=== PATIENT | male | born 1950 | race African-American/Black ===

== ENCOUNTER 2022-07-22 16:24 | Inpatient (IN) | payer OTHER, MEDICARE ==
[2022-07-22 16:26] VITALS: BMI 30.8
[2022-07-22 20:38] LABS: Hemoglobin A1c 5.3 % (4.0-6.0)
[2022-07-22] MEDS: Guaifenesin DM 100-10/5 ML UDCUP PO PRN (20:45)
[2022-07-23 05:54] LABS: #Eosinphils 0.2 thou/uL (0.0-0.7); #Lymphocytes 1.9 thou/uL (1.20-3.40); #Monocytes 0.5 thou/uL (0.11-0.59); #Neutrophils 1.6 thou/uL (1.40-6.50); %Basophils 0.5 % (0.0-1.0); %Eosinophils 5.6 % (0.0-10.0); %Lymphocytes 44.1 % (21.0-51.0); %Monocytes 11.6 % (0.0-10.0); %Neutrophils 38.3 % (42.0-75.0); Hemoglobin 12.3 g/dL (14.0-18.0); Mean Corpuscular HGB CONC 32.4 g/dL (32.0-36.0); Mean Corpuscular Hemoglobin 30.7 pg (27.0-31.0); Mean Corpuscular Volume 94.6 fl (78.0-98.0); Platelet Count 326 10x3/uL (130-400); White Blood Cell (WBC) Count 4.2 10x3/uL (4.8-10.8)
[2022-07-23 06:25] LABS: ALT (SGPT) 13 U/L (8-55); AST (SGOT) 21 U/L (5-34); Albumin 3.5 g/dL (3.4-4.8); Alkaline Phosphatase 58 U/L (40-110); Anion Gap 10 mmol/L (10-20); BUN (Urea Nitrogen) 14 mg/dL (8.4-25.7); Bilirubin, Total 0.9 mg/dL (0.2-1.2); Calc. Creatinine Clearance 86 mL/min (70-130); Calcium 8.6 mg/dL (7.8-10.44); Carbon Dioxide 24 mmol/L (23-31); Chloride 108 mmol/L (98-107); Estimated GFR 81; Glucose 75 mg/dL (83-110); Potassium 3.9 mmol/L (3.5-5.1); Protein, Total 6.5 g/dL (5.8-8.1); Sodium 138 mmol/L (136-145)
[2022-07-23 06:50] LABS: Cardiac Risk 4.3 (Less than 4.5)
[2022-07-23] MEDS: Aspirin 81 mg Enteric Coated Tablet PO SCH (08:47)
[2022-07-23] MEDS: Enoxaparin Sodium 40 MG/0.4 ML SYRINGE SC SCH (08:47)
[2022-07-24] MEDS: Aspirin 81 mg Enteric Coated Tablet PO SCH (08:03)
[2022-07-24] MEDS: Enoxaparin Sodium 40 MG/0.4 ML SYRINGE SC SCH (08:03)
[2022-07-24] MEDS ORDERED: Iopamidol-370 76% 500 ML 1 ML ONE (11:09)
[2022-07-24] MEDS: Guaifenesin DM 100-10/5 ML UDCUP PO PRN (18:09)
[2022-07-24] MEDS ORDERED: Atorvastatin Calcium 40 MG TAB PO SCH (21:00)
[2022-07-25] MEDS: Aspirin 81 mg Enteric Coated Tablet PO SCH (08:39)
[2022-07-25] MEDS: Enoxaparin Sodium 40 MG/0.4 ML SYRINGE SC SCH (08:39)
[2022-07-25 16:31] VITALS: BP 136/67; TEMP 97.7
== END 2022-07-25 17:47 | disposition home or self-care (01) | DRG 66 ==
LOC: 2SW 16:25 → OBSVTOIN 07-24 15:11
PROVIDERS: ADMIT Student in an Organized Health Care Education/Training Program; ATTEND Student in an Organized Health Care Education/Training Program
DX: I63.89 Other cerebral infarction (principal); Z20.822 Contact with and (suspected) exposure to COVID-19; E78.5 Hyperlipidemia, unspecified; G47.33 Obstructive sleep apnea (adult) (pediatric); J44.9 Chronic obstructive pulmonary disease, unspecified; F17.210 Nicotine dependence, cigarettes, uncomplicated; F43.10 Post-traumatic stress disorder, unspecified
CPT/HCPCS: 36415; 70496; 70498; 70551; 80053; 80061; 83036; 84443; 85025; 93005; 93010; 93306; J1650; Q9967; U0003; U0005

== ENCOUNTER 2022-10-13 15:51 | Outpatient (CLI) | payer OTHER | END 2022-10-13 15:52 | disposition home or self-care (01) | LOC: ULT 15:51 | PROVIDERS: ATTEND Internal Medicine | DX: G45.9 Transient cerebral ischemic attack, unspecified (principal); I65.21 Occlusion and stenosis of right carotid artery | CPT/HCPCS: 93880 ==